=== PATIENT | male | born 1995 | race Hispanic/Latino ===

== ENCOUNTER 2021-11-25 14:32 | Outpatient (CLI) | payer SELFPAY ==
--- NOTE | 2021-11-25 16:52 | Ultrasound Report ---
ULTRASOUND RENAL INDICATION / CLINICAL INFORMATION: POSSIBLE KIDNEY STONE DUE TO BILATERAL FLANK PAIN R10.9. COMPARISON: None available. FINDINGS: RIGHT KIDNEY: Length = 10.4 cm. - Echogenicity: Normal. - Cortical Thickness: Normal. - Hydronephrosis: None. - Cyst or mass: No significant abnormality. - Stones: None seen. LEFT KIDNEY: Length = 11.7 cm. - Echogenicity: Normal - Cortical Thickness: Normal. - Hydronephrosis: None. - Cyst or mass: No significant abnormality. - Stones: Small echogenic focus measures 6 mm URINARY BLADDER: No significant abnormality. FREE FLUID: None. ADDITIONAL FINDINGS: None. IMPRESSION: 1. Echogenic focus in the left kidney measures 6 mm. Signer Name: Elvin Fernandez MD Signed: 11/25/2021 4:48 PM Workstation Name: [id number]
== END 2021-11-25 14:33 | disposition home or self-care (01) ==
LOC: US 14:32
PROVIDERS: ATTEND Internal Medicine
DX: R10.9 Unspecified abdominal pain (principal)
CPT/HCPCS: 76770